=== PATIENT | female | born 1975 | race Two or more races ===

== ENCOUNTER 2019-05-16 11:55 | Outpatient (CLI) | payer OTHER | END 2019-05-16 15:00 | disposition home or self-care (01) | LOC: MAMO-SONO 11:55 | DX: Z12.31 Encounter for screening mammogram for malignant neoplasm of breast (principal); Z87.898 Personal history of other specified conditions; N93.8 Other specified abnormal uterine and vaginal bleeding; N85.01 Benign endometrial hyperplasia; N60.11 Diffuse cystic mastopathy of right breast; N60.12 Diffuse cystic mastopathy of left breast ==

== ENCOUNTER → 2019-05-18 | Emergency (ER) | payer OTHER ==
[~2019-05-18] VITALS: Ht 160 cm; Wt 85.3 kg
== END | disposition home or self-care (01) ==
LOC: ER 20:34
DX: N93.8 Other specified abnormal uterine and vaginal bleeding (principal); N83.291 Other ovarian cyst, right side; R10.2 Pelvic and perineal pain

== ENCOUNTER 2023-10-30 10:22 | Emergency (ER) | payer OTHER ==
[~2023-10-30] VITALS: Ht 160 cm; Wt 90.7 kg
== END 2023-10-30 13:17 | disposition home or self-care (01) ==
LOC: ER 10:22
DX: R10.31 Right lower quadrant pain (principal)

== ENCOUNTER 2023-11-11 08:12 | Outpatient (CLI) | payer OTHER | END 2023-11-11 08:34 | disposition home or self-care (01) | LOC: TOM 08:12 | PROVIDERS: ATTEND Obstetrics & Gynecology Gynecology | DX: R10.2 Pelvic and perineal pain (principal); R10.817 Generalized abdominal tenderness; I10 Essential (primary) hypertension ==

== ENCOUNTER 2025-02-21 12:45 | Emergency (ER) | payer OTHER ==
[~2025-02-21] VITALS: Ht 162.6 cm; Wt 94.8 kg
[2025-02-21 14:38] VITALS: BP 117/80; O2SAT 99
[2025-02-21] MEDS ORDERED: SYNTHROID50 MCG PO (14:40)
== END 2025-02-21 16:00 | disposition home or self-care (01) ==
LOC: ER 12:58
DX: R00.2 Palpitations (principal)

== ENCOUNTER 2025-02-23 13:25 | Outpatient (CLI) | payer OTHER ==
[~2025-02-23 13:25] MED LIST: SYNTHROID50 MCG PO
== END 2025-02-23 13:35 | disposition home or self-care (01) ==
LOC: SONOGRAMA 13:25
PROVIDERS: ATTEND Internal Medicine Endocrinology, Diabetes & Metabolism
DX: E04.2 Nontoxic multinodular goiter (principal); E06.3 Autoimmune thyroiditis